=== PATIENT | male | born 1960 | race Caucasian/White ===

== ENCOUNTER 2020-02-02 13:54 | Emergency (ER) | payer OTHER, SELFPAY ==
[2020-02-02 13:58] VITALS: BP 144/91; PULSE 88; RESP 16; TEMP 37.3; O2SAT 98
--- NOTE | 2020-02-02 14:07 | ED.SKABFB ---
HPI - Skin/Abscess/Foreign Bdy General Chief complaint: Dental/Oral Stated complaint: rt tooth abcess/ spread to sinus Time Seen by Provider: 02/02/20 13:57 Source: patient Mode of arrival: Ambulatory Limitations: no limitations Related Data Home Medications Medication Instructions Recorded Confirmed amlodipine-benazepril [Lotrel] 1 cap PO QAM 02/02/20 02/02/20 aspirin 81 mg PO QAM 02/02/20 02/02/20 metformin 500 mg PO BID 02/02/20 02/02/20 pantoprazole 40 mg PO QAM 02/02/20 02/02/20 Previous Rx's Medication Instructions Recorded clindamycin HCl 300 mg PO Q6H 10 Days #40 cap 02/02/20 ketorolac 10 mg PO QID PRN #20 tab 02/02/20 Allergies Allergy/AdvReac Type Severity Reaction Status Date / Time No Known Drug Allergies Allergy Verified 02/02/20 14:05 Patient History Social History Smoking Status: Never smoker Smoking Status: Never smoker alcohol intake frequency: a few times a month Substance Use Type: does not use Exam Initial Vital Signs Initial Vital Signs: Vital Signs Temperature 99.2 F 02/02/20 13:58 Pulse Rate 88 02/02/20 13:58 Respiratory Rate 16 02/02/20 13:58 Blood Pressure 144/91 H 02/02/20 13:58 Pulse Oximetry 98 02/02/20 13:58 Course Vital Signs Vital signs: Vital Signs - 8 hr 02/02/20 13:58 Temperature 99.2 F Pulse Rate 88 Respiratory Rate 16 Blood Pressure 144/91 H Pulse Oximetry 98 Discharge Plan Departure Patient Disposition: Home Clinical Impression: Dental abscess Discharge Date/Time: 02/02/20 14:30 Instructions: Tooth Abscess, DI for Dental Pain Activity Restrictions/Additional Instructions: *You have been diagnosed with [dental pain, likely early dental abscess] *What to do: *Take medications as directed *Follow up with your dental provider in 2-3 days, call for an appointment. Let them know you were seen in the Emergency Department and that we ask that you be seen in follow up *Return to ER if you should have any new, worsening or concerning symptoms Prescriptions: New clindamycin HCl 300 mg capsule 300 mg PO Q6H 10 Days Qty: 40 RF: 0 ketorolac 10 mg tablet 10 mg PO QID PRN (Reason: pain) Qty: 20 RF: 0 No Action aspirin 81 mg tablet,delayed release (DR/EC) 81 mg PO QAM RF: 0 pantoprazole 40 mg tablet,delayed release (DR/EC) 40 mg PO QAM RF: 0 metformin 500 mg tablet extended release 24 hr 500 mg PO BID RF: 0 amlodipine-benazepril [Lotrel] 10-20 mg capsule 1 cap PO QAM RF: 0 Referrals: Chris Bateman, WENDY [Physician] -
--- NOTE | 2020-02-02 18:44 | ED_ITS ---
HPI - Dental/Oral General Chief complaint: Dental/Oral Stated complaint: rt tooth abcess/ spread to sinus Time Seen by Provider: 02/02/20 13:57 Source: patient Mode of arrival: Ambulatory Limitations: no limitations History of Present Illness HPI Narrative: 59-year-old male nonsmoker with history of diabetes presents with a chief complaint of right-sided dental pain and some facial swelling over the past few days. He has tried to reach his dentist but has been unsuccessful. He denies fever, chills nor nausea or vomiting. He denies any difficulty with swallowing. MD Complaint: tooth pain Location: Tooth # Teeth map: 1. 2. Related Data Home Medications Medication Instructions Recorded Confirmed amlodipine-benazepril [Lotrel] 1 cap PO QAM 02/02/20 02/02/20 aspirin 81 mg PO QAM 02/02/20 02/02/20 metformin 500 mg PO BID 02/02/20 02/02/20 pantoprazole 40 mg PO QAM 02/02/20 02/02/20 Previous Rx's Medication Instructions Recorded clindamycin HCl 300 mg PO Q6H 10 Days #40 cap 02/02/20 ketorolac 10 mg PO QID PRN #20 tab 02/02/20 Allergies Allergy/AdvReac Type Severity Reaction Status Date / Time No Known Drug Allergies Allergy Verified 02/02/20 14:05 Review of Systems Constitutional Constitutional: Denies chills, Denies fatigue, Denies fever(s), Denies frequent falls, Denies lethargy and Denies weakness Eyes Eyes: Denies change in vision, Denies eye discharge, Denies irritation and Denies loss of vision ENT Ears, Nose, Mouth, and Throat: Denies change in voice, Reports dental pain, Denies dizziness, Denies neck pain, Denies sore throat and Denies throat swelling Cardiovascular Cardiovascular: Denies chest pain, Denies irregular heart rhythm, Denies lightheadedness, Denies palpitations, Denies dyspnea, Denies dyspnea on exertion and Denies orthopnea Respiratory Respiratory: Denies cough, Denies dyspnea, Denies dyspnea on exertion and Denies wheezing Gastrointestinal Gastrointestinal: Denies abdominal pain, Denies change in bowel habits, Denies diarrhea, Denies nausea and Denies vomiting Genitourinary Genitourinary: Denies hematuria, Denies flank pain, Denies urinary incontinence and Denies urinary urgency Musculoskeletal Musculoskeletal: Denies back pain, Denies muscle weakness, Denies neck pain, Denies numbness and Denies tingling Integumentary/Breasts Skin/Breast: Denies pruritus, Denies erythema, Denies rash and Denies wounds Neurologic Neurologic: Denies behavioral changes, Denies confusion, Denies dizziness, Denies frequent falls, Denies loss of vision, Denies numbness, Denies tingling and Denies weakness Psychiatric Psychiatric: Denies anxiety, Denies behavioral changes, Denies confusion, Denies depression, Denies homicidal ideation and Denies suicidal ideation Endocrine Endocrine: Denies fatigue, Denies flushing and Denies palpitations Hematologic/Lymphatic Hematologic/Lymphatic: Denies easy bruising Allergic/Immunologic Allergic/Immunologic: Denies urticaria, Denies throat swelling and Denies wheezing Patient History Social History Smoking Status: Never smoker Smoking Status: Never smoker alcohol intake frequency: a few times a month Substance Use Type: does not use Exam Narrative Exam Narrative: GEN: AOx3 and in mild distress FACE:Mild right sided facial swelling, no intraoral abscess. Widespread poor d entition throughout. EYES: Pupils are equal, round, and reactive to light and accommodation. Extra occular muscles are intact bilaterally. There is no subconjunctival hemorrhage or exudate. CHEST: Lungs are clear to auscultation bilaterally and free of wheezes, rales, or rhonchi. Heart rate is regular rhythm, there are no murmurs, clicks, rubs, or gallops. There is no chest wall tenderness. ABD: Abdomen is soft and nontender. There is no guarding or rebound. Bowel sounds are normal in all 4 quadrants. There is no mass or organomegaly. EXT: Full painless ROM of all extremities with no loss of sensation or strength. SKIN: Warm, pink, and dry. No erythema or rash Initial Vital Signs Initial Vital Signs: Vital Signs Temperature 99.2 F 02/02/20 13:58 Pulse Rate 88 02/02/20 13:58 Respiratory Rate 16 02/02/20 13:58 Blood Pressure 144/91 H 02/02/20 13:58 Pulse Oximetry 98 02/02/20 13:58 Course Vital Signs Vital signs: Vital Signs - 8 hr 02/02/20 13:58 Temperature 99.2 F Pulse Rate 88 Respiratory Rate 16 Blood Pressure 144/91 H Pulse Oximetry 98 Discharge Plan Departure Patient Disposition: Home Clinical Impression: Dental abscess Discharge Date/Time: 02/02/20 14:30 Instructions: Tooth Abscess, DI for Dental Pain Activity Restrictions/Additional Instructions: *You have been diagnosed with [dental pain, likely early dental abscess] *What to do: *Take medications as directed *Follow up with your dental provider in 2-3 days, call for an appointment. Let them know you were seen in the Emergency Department and that we ask that you be seen in follow up *Return to ER if you should have any new, worsening or concerning symptoms Prescriptions: New clindamycin HCl 300 mg capsule 300 mg PO Q6H 10 Days Qty: 40 RF: 0 ketorolac 10 mg tablet 10 mg PO QID PRN (Reason: pain) Qty: 20 RF: 0 No Action aspirin 81 mg tablet,delayed release (DR/EC) 81 mg PO QAM RF: 0 pantoprazole 40 mg tablet,delayed release (DR/EC) 40 mg PO QAM RF: 0 metformin 500 mg tablet extended release 24 hr 500 mg PO BID RF: 0 amlodipine-benazepril [Lotrel] 10-20 mg capsule 1 cap PO QAM RF: 0 Referrals: Chris Bateman DMD [Physician] -
== END 2020-02-02 14:30 | disposition home or self-care (01) ==
PROVIDERS: Emergency Provider Emergency Medicine
DX: K08.89 Other specified disorders of teeth and supporting structures (principal)
CPT/HCPCS: 99281

== ENCOUNTER 2022-11-14 08:40 | Emergency (ER) | payer OTHER, SELFPAY ==
[2022-11-14 09:29] VITALS: BP 132/80; PULSE 77; RESP 16; TEMP 37; O2SAT 98; BMI 33.9
--- NOTE | 2022-11-14 10:33 | ED_ITS ---
HPI - URI/Sore Throat General Chief Complaint: Upper Respiratory Symptoms Stated Complaint: throat is swollen hurts to swallow T-3 Time Seen by Provider: 11/14/22 10:24 Source: patient Mode of arrival: Ambulatory History of Present Illness HPI Narrative: Patient with history of diabetes complains of sore throat and painful swallowing for the past 4 days. No known sick contacts. Patient still has his tonsils. No fever. No drooling. No trouble breathing. Patient not toxic. In no distress. No nausea or vomiting. Related Data Home Medications Medication Instructions Recorded Confirmed amlodipine 10 mg-benazepril 20 mg 1 cap PO QAM 02/02/20 02/02/20 capsule (Lotrel) aspirin 81 mg tablet,delayed 81 mg PO QAM 02/02/20 02/02/20 release metformin 500 mg tablet,extended 500 mg PO BID 02/02/20 02/02/20 release 24 hr pantoprazole 40 mg tablet,delayed 40 mg PO QAM 02/02/20 02/02/20 release Previous Rx's Medication Instructions Recorded ketorolac 10 mg tablet 10 mg PO QID PRN pain #20 tabs 02/02/20 Allergies Allergy/AdvReac Type Severity Reaction Status Date / Time No Known Drug Allergies Allergy Verified 11/14/22 09:34 Review of Systems Review of Systems Narrative: GENERAL: negative chills, fatigue, malaise, fever, sweats. HEENT: negative sinus pain, ear pain, positive sore throat RESPIRATORY: negative dyspnea, cough CARDIOVASCULAR: negative chest pain, palpitations GASTROINTESTINAL: negative nausea, vomiting, abdominal pain : negative dysuria, frequency, hematuria MUSCULOSKELETAL: negative muscle or bony pain SKIN: negative rash, skin lesions NEUROLOGIC: negative weakness, numbness ROS Unobtainable: All systems reviewed & are unremarkable except as noted in HPI and below Patient History Social History Smoking Status: Never smoker Smoking Status: Never smoker alcohol intake frequency: a few times a month Substance Use Type: does not use Exam Narrative Exam Narrative: GENERAL: in no distress, not toxic not dyspneic HEAD: Normocephalic. EYES: Pupils equal round ENT: Mucous membranes moist. There is bilateral symmetric erythema edema of the posterior pharynx. Small punctate exudates bilaterally. No midline shift. No uvular shift. No drooling. No tongue elevation. NECK: Trachea midline. No stridor. There is bilateral submandibular tenderness right greater than left however trachea is midline CARDIOVASCULAR: Regular rate and rhythm without murmurs RESPIRATORY: Clear to auscultation. Breath sounds equal bilaterally. No wheezes, rales, or rhonchi. Patient speaking full sentences. BACK: No flank tenderness. NEURO: AOx4. SKIN: Warm and dry PSYCH: Not anxious, is cooperative Initial Vital Signs Initial Vital Signs: Vital Signs Temperature 98.6 F 11/14/22 09:29 Pulse Rate 77 11/14/22 09:29 Respiratory Rate 16 11/14/22 09:29 Blood Pressure 132/80 11/14/22 09:29 Pulse Oximetry 98 11/14/22 09:29 Oxygen Delivery Method Room Air 11/14/22 09:29 Course Orders Ordered: Discontinued Medications Dexamethasone (Dexamethasone 10 Mg/Ml Vial) 10 mg PO NOW ONE Stop: 11/14/22 10:32 Last Admin: 11/14/22 10:43 Dose: 10 mg Documented By: MEENU Penicillin G Benzathine (Penicillin G Benzathine 1,200,000 Unit/2 Ml Syringe) 1,200,000 unit IM NOW ONE Stop: 11/14/22 10:32 Last Admin: 11/14/22 10:44 Dose: 1,200,000 unit Documented By: MEENU Vital Signs Vital signs: Vital Signs - 8 hr 11/14/22 09:29 Temperature 98.6 F Pulse Rate 77 Respiratory Rate 16 Blood Pressure 132/80 Pulse Oximetry 98 Oxygen Delivery Method Room Air MDM - URI/Sore Throat Lab Data Labs: Point of Care Testing Rapid Strep A Positive MDM Narrative Medical decision making narrative: Patient with history of diabetes complains of sore throat and painful swallowing for the past 4 days. No known sick contacts. Patient still has his tonsils. No fever. No drooling. No trouble breathing. Patient not toxic. In no distress. No nausea or vomiting. After history and exam strep swab ordered, benzathine/Decadron ordered [facility] CC: Sore throat Complicating co-morbidities: Diabetes Data collected from: Patient Medical records reviewed: Patient seen here in the past for dental abscess Differential considered: Includes but not limited to pharyngitis tonsillitis peritonsillar abscess retropharyngeal abscess viral pharyngitis/strep throat Exam documented above, pertinent findings include: Bilateral symmetric erythema edema of the pharynx with exudates Lab Test results independently reviewed as above. Pertinent findings: Positive POC strep Treatments: Decadron and benzathine Re-evaluations: Reviewed physical exam and strep findings with patient. Return precautions reviewed with them. Instructions for hydration and return precautions reviewed with him. Patient agrees with treatment plan. Discussion: Appropriate for discharge home. Patient does desire single dose treatment with benzathine. Decadron given and he does understand to monitor his glucose levels with Decadron given as well as current infection. Return precautions reviewed with him. Not toxic not dyspneic. No drooling. Airway intact at time of discharge. At this time clinically not abscess formation. Referral for otolaryngology given as well. Diagnosis: Strep throat Discharge Plan Departure Patient Disposition: Home Clinical Impression: Strep sore throat Instructions: DI for Strep Throat Activity Restrictions/Additional Instructions: Please call provided ear nose and throat office today for office appointment for re-evaluation within a week. Call today. Keep well hydrated. Drink plenty of water/soup/broth. May continue ibuprofen or Tylenol for pain. Return immediately if any trouble breathing or if any drooling. Or unable to swallow. Be sure to monitor your blood glucose levels. Infections and steroids can cause your sugar levels to elevate. Please do continue your home medications as well as diabetes medication. Single dose/treatment penicillin was given to you today for treatment of strep throat. Prescriptions: No Action aspirin 81 mg tablet,delayed release (DR/EC) 81 mg PO QAM pantoprazole 40 mg tablet,delayed release (DR/EC) 40 mg PO QAM metformin 500 mg tablet extended release 24 hr 500 mg PO BID amlodipine-benazepril [Lotrel] 10-20 mg capsule 1 cap PO QAM ketorolac 10 mg tablet 10 mg PO QID PRN (Reason: pain) Qty: 20 0RF Referrals: Harsh Lopez MD [Physician] - Miscellaneous,MD Gonzalo [Primary Care Provider] - Stand Alone Forms: Patient Portal/API, Work Release Note
[2022-11-14] MEDS: DEXAMETHASONE 10 MG/ML VIAL PO (10:43)
[2022-11-14] MEDS: PENICILLIN G BENZATHINE 1,200,000 UNIT/2 ML SYRINGE 1200000 UNIT IM (10:44)
[2022-11-14 10:55] VITALS: BP 130/77; PULSE 90; O2SAT 97
== END 2022-11-14 11:08 | disposition home or self-care (01) ==
PROVIDERS: Emergency Provider Emergency Medicine
DX: J02.0 Streptococcal pharyngitis (principal)
CPT/HCPCS: 87880; 96372; 99283; J0561; J1100

== ENCOUNTER 2025-04-03 13:35 | Emergency (ER) | payer OTHER, SELFPAY ==
[2025-04-03 13:44] VITALS: BP 146/78; PULSE 71; RESP 20; TEMP 37; O2SAT 97; BMI 33.9
--- NOTE | 2025-04-03 18:21 | ED.SKABFB ---
HPI - Skin/Abscess/Foreign Bdy <La Payne PA-C - Last Filed: 04/03/25 18:23> General Chief complaint: Skin/Abscess/Foreign Body Stated complaint: stung by wasps days ago, swelling and itching Time Seen by Provider: 04/03/25 17:25 Mode of arrival: Ambulatory History of Present Illness HPI narrative: This patient left without being seen from the lobby. I had signed up for him anticipating he would be brought back to a room however he left without being seen prior to this. I had no patient contact and did not see or evaluate this patient. Rissa Payne PA-C Related Data Home Medications ?Medication ?Instructions ?Recorded ?Confirmed amlodipine 10 mg-benazepril 20 mg 1 cap PO QAM 02/02/20 02/02/20 capsule (Lotrel) aspirin 81 mg tablet,delayed 81 mg PO QAM 02/02/20 02/02/20 release metformin 500 mg tablet,extended 500 mg PO BID 02/02/20 02/02/20 release 24 hr pantoprazole 40 mg tablet,delayed 40 mg PO QAM 02/02/20 02/02/20 release Previous Rx's ?Medication ?Instructions ?Recorded ketorolac 10 mg tablet 10 mg PO QID PRN pain #20 tabs 02/02/20 Allergies Allergy/AdvReac Type Severity Reaction Status Date / Time No Known Drug Allergies Allergy Verified 04/03/25 13:45 Patient History <La Payne PA-C - Last Filed: 04/03/25 18:23> Social History Smoking Status: Never smoker Smoking Status: Never smoker alcohol intake frequency: a few times a month Exam <La Payne PA-C - Last Filed: 04/03/25 18:23> Initial Vital Signs Initial Vital Signs: Vital Signs Temperature 98.6 F 04/03/25 13:44 Pulse Rate 71 04/03/25 13:44 Respiratory Rate 20 04/03/25 13:44 Blood Pressure 146/78 H 04/03/25 13:44 Pulse Oximetry 97 04/03/25 13:44 Oxygen Delivery Method Room Air 04/03/25 13:44 <Geraldo Michel MD - Last Filed: 04/04/25 15:21> Initial Vital Signs Initial Vital Signs: Vital Signs Temperature 98.6 F 04/03/25 13:44 Pulse Rate 71 04/03/25 13:44 Respiratory Rate 20 04/03/25 13:44 Blood Pressure 146/78 H 04/03/25 13:44 Pulse Oximetry 97 04/03/25 13:44 Oxygen Delivery Method Room Air 04/03/25 13:44 Course <La Payne PA-C - Last Filed: 04/03/25 18:23> Vital Signs Vital signs: Vital Signs - 8 hr 04/03/25 13:44 Temperature 98.6 F Pulse Rate 71 Respiratory Rate 20 Blood Pressure 146/78 H Pulse Oximetry 97 Oxygen Delivery Method Room Air <Geraldo Michel MD - Last Filed: 04/04/25 15:21> Vital Signs Vital signs: Vital Signs - 8 hr 04/03/25 13:44 Temperature 98.6 F Pulse Rate 71 Respiratory Rate 20 Blood Pressure 146/78 H Pulse Oximetry 97 Oxygen Delivery Method Room Air Discharge Plan Departure Patient Disposition: Left Without Being Seen Clinical Impression: Patient left after triage Prescriptions: No Action aspirin 81 mg tablet,delayed release (DR/EC) 81 mg PO QAM pantoprazole 40 mg tablet,delayed release (DR/EC) 40 mg PO QAM metformin 500 mg tablet extended release 24 hr 500 mg PO BID amlodipine-benazepril [Lotrel] 10-20 mg capsule 1 cap PO QAM ketorolac 10 mg tablet 10 mg PO QID PRN (Reason: pain) Qty: 20 0RF ED Sign-out <Geraldo Michel MD - Last Filed: 04/04/25 15:21> Cosign ED Attending Cosignature Attestation: I was readily available for consultation at all times. I agree with assessment and plan of care
== END 2025-04-03 17:52 | disposition left against medical advice (07) ==
PROVIDERS: Emergency Provider Student in an Organized Health Care Education/Training Program
CPT/HCPCS: 99281